=== PATIENT | female | born 1995 | race Caucasian/White ===

== ENCOUNTER → 2018-08-03 | Day surgery (SDC) | payer BC ==
[~2018-08-03] MED LIST: Acetaminophen/HYDROcodone 325-5 MG Tab PO PRN; Bupivacaine 0.5% 30 ML SDV ONE; Dexamethasone 4 MG/ML 5 ML MDV ONE; HYDROmorphone 0.5 MG/0.5 ML Syringe ONE; Haloperidol Lactate 5 MG/ML SDV IVPUSH ONE; Ketorolac 30 MG/ML SDV ONE; Lactated Ringers 1,000 ML ONE; Lidocaine 1% 4 ML ONE; Metoclopramide 10 MG/2 ML SDV ONE; Midazolam 1 MG/ML 2 ML SDV ONE; Neostigmine Methylsulfate 1 MG/ML 5 ML Syringe ONE; Ondansetron 4 MG/2 ML SDV ONE; Propofol 200 MG/20 ML SDV ONE; Rocuronium 50 MG/5 ML Vial ONE; Sodium Chloride 0.9% 10 ML Syringe FLUSH PRN; diphenhydrAMINE 50 MG/ML SDV IVPUSH PRN; fentaNYL 100 MCG/2 ML SDV IVPUSH PRN; fentaNYL 100 MCG/2 ML SDV ONE; fentaNYL 250 MCG/5 ML SDV ONE
--- NOTE | 2018-08-03 07:17 | ER ---
REASON FOR EMERGENCY ROOM VISIT: Abdominal pain. HISTORY OF PRESENT ILLNESS: The patient is a 22-year-old woman, 3, para 1, who has a past history of 2 previous miscarriages. She has been followed by Dr. Samara Denis for her OB, who is her OB physician at [facility]. She was diagnosed as being 2 weeks ago and because of her 2 miscarriages in the past, she was being followed quite closely by Dr. Denis. She was being followed with serial HCG levels, which were very sluggish to rise, which raised suspicion that she might in fact be harboring an ectopic ; however, on the most recent studies apparently, according to the patient and Dr. Denis, her HCG levels zach precipitously as one might expect, which caused them to be somewhat relieved. She has not yet had an ultrasound but was scheduled to have one this week. Yesterday, she began to experience pain in the right lower quadrant. This increased throughout the day and into the evening, last night, prompting her to come to the emergency room at approximately 0300 hours. She has not had any fever, chills, irritative voiding symptoms. She denies any nausea, vomiting, or diarrhea. PAST MEDICAL HISTORY: Two previous miscarriages as mentioned above. Childbirth x1. CURRENT MEDICATIONS: None. ALLERGIES: Sulfa and latex. REVIEW OF SYSTEMS: Pertinent positives and negatives as listed in the HPI. PHYSICAL EXAMINATION: GENERAL: She is a calm, somewhat apprehensive-looking young woman, in no acute distress. She is afebrile. VITAL SIGNS: Heart rate is 77, blood pressure 107/63, respiratory rate 16, and O2 saturations 100% on room air. HEENT: Oropharynx is normal. No conjunctivitis is noted. NECK: No adenopathy. No JVD. CHEST: Clear to auscultation with good air exchange bilaterally. CARDIAC: Regular rate without murmur. ABDOMEN: Nondistended. Bowel sounds are present. She does have definite moderate tenderness in the right lower quadrant without rebound or guarding and no percussion tenderness. PELVIC: Speculum exam reveals the cervical os to be normal in appearance and not dilated. There is no evidence of clot. Bimanual examination; she has a fair amount of guarding, it is difficult to assess her uterine size. I cannot palpate an adnexal mass on the right side, but she is definitely tender. EXTREMITIES: Normal pulses. No edema. No deformities. SKIN: No rashes. LABORATORY DATA: Her hemoglobin is 14.7. Her white blood count is not elevated. CMP was performed and this was normal. Urinalysis was normal. A beta-hCG quantitative came back 2364. She was typed and screened and her blood type is A positive. FURTHER EMERGENCY ROOM COURSE: We did get a transvaginal ultrasound because of the suspicion that she has an ectopic . Indeed, it shows a 4.3 x 2 cm mass in the right adnexal area, somewhat suspicious of the right ectopic . Her uterus shows some suggestion of a blood clot in the endometrial canal. Her left ovary is 2.2 x 1.4 cm. She does have some complex fluid lying within the cul-de-sac further suggesting the possibility of a ruptured ectopic. It should be emphasized that there was no evidence of any viable intrauterine . The patient remained dynamically stable and rested reasonably comfortably while we are awaiting the results of these studies. Once all the information was back, I contacted Dr. Samara Denis and described the findings to her. She agrees with the diagnosis and will be coming in to see the patient shortly. This was relayed to the patient. She felt reassured. All questions were answered. PAL /[id number]
--- NOTE | 2018-08-03 07:23 | PCM.HP ---
H&P History of Present Illness - General Date of Service: 08/03/18 Source of Information: Patient History Limitations: Reports: No Limitations - History of Present Illness Initial Comments - Free Text/Narative: Patient is a 22 y/o who presented to the ER today with concerns of RLQ pain. Patient seen in clinic early this due to history of miscarriage. Initial hCG's zach by about 40%, but then had a more than appropriate rise to a value of 973 on 07/29. Was set up for an early US, but unfortunately had to present today due to worsening RLQ pain. Rates moderate overall. No associate vaginal bleeding. No bowel or bladder concerns. No other issues. Has had evaluation in the ER including hCG value which is now only 2364 and an US which does not show an IUP. Right Abdominal Pain Score (Numeric/FACES): 8 - Related Data Allergies/Adverse Reactions: Allergies Allergy/AdvReac Type Severity Reaction Status Date / Time latex Allergy Rash Verified 08/03/18 03:08 Sulfa (Sulfonamide Allergy Rash Verified 08/03/18 03:08 Antibiotics) Home Medications: Home Meds . [No Known Home Meds] 08/03/18 [History] Past Medical History [employer] History: Reports: , Spontaneous : 3 Para: 1 - Past Surgical History HEENT Surgical History: Reports: Naso-Sinus Surgery, Oral Surgery (wisdom tooth extraction) Social & Family History - Family History Family Medical History: Noncontributory - Tobacco Use Smoking Status *Q: Light Tobacco Smoker Second Hand Smoke Exposure: No - Caffeine Use Caffeine Use: Reports: None - Alcohol Use Alcohol Use History: No - Recreational Drug Use Recreational Drug Use: No H&P Review of Systems - Review of Systems: Review Of Systems: See Below General: Reports: No Symptoms Pulmonary: Reports: No Symptoms Cardiovascular: Reports: No Symptoms Gastrointestinal: Reports: Abdominal Pain Genitourinary: Reports: No Symptoms Musculoskeletal: Reports: No Symptoms Neurological: Reports: No Symptoms Exam - Exam Exam: See Below - Vital Signs Vital Signs: Last Vital Signs Temp 36.6 C 08/03/18 06:24 Pulse 86 08/03/18 06:24 Resp 18 08/03/18 06:24 BP 105/67 08/03/18 06:24 Pulse Ox 98 08/03/18 06:24 Weight: 70.307 kg - Exam General: Alert, Oriented, Cooperative Lungs: Clear to Auscultation, Normal Respiratory Effort Cardiovascular: Regular Rate, Regular Rhythm GI/Abdominal Exam: Soft, Non-Tender (Female) Exam: Adnexal Tenderness, Cervix Motion Tenderness Back Exam: Normal Inspection Extremities: Normal Inspection - Patient Data Lab Results Last 24 hrs: Laboratory Results - last 24 hr 08/03/18 08/03/18 08/03/18 Range/Units 03:28 03:28 03:28 WBC 6.84 (3.98-10.04) K/mm3 RBC 4.70 (3.98-5.22) M/mm3 Hgb 14.7 (11.2-15.7) gm/L Hct 42.0 (34.1-44.9) % MCV 89.4 (79.4-94.8) fl MCH 31.3 (25.6-32.2) pg MCHC 35.0 (32.2-35.5) g/dl RDW Std Deviation 39.4 (36.4-46.3) fL Plt Count 211 (182-369) K/mm3 MPV 9.1 L (9.4-12.3) fl Neut % (Auto) 68.0 (34.0-71.1) % Lymph % (Auto) 23.2 (19.3-51.7) % [place] % (Auto) 8.0 (4.7-12.5) % Eos % (Auto) 0.6 L (0.7-5.8) Baso % (Auto) 0.1 (0.1-1.2) % Neut # (Auto) 4.64 (1.56-6.13) K/mm3 Lymph # (Auto) 1.59 (1.18-3.74) K/mm3 [place] # (Auto) 0.55 H (0.24-0.36) K/mm3 Eos # (Auto) 0.04 (0.04-0.36) K/mm3 Baso # (Auto) 0.01 (0.01-0.08) K/mm3 Sodium 137 (136-145) mEq/L Potassium 3.9 (3.5-5.1) mEq/L Chloride 103 (98-107) mEq/L Carbon Dioxide 25 (21-32) mEq/L Anion Gap 12.9 (5-15) BUN 12 (7-18) mg/dL Creatinine 0.6 (0.55-1.02) mg/dL Est Cr Clr Drug Dosing 120.63 mL/min Estimated GFR (MDRD) > 60 (>60) mL/min BUN/Creatinine Ratio 20.0 H (14-18) Glucose 106 (74-106) mg/dL Calcium 9.1 (8.5-10.1) mg/dL Total Bilirubin 0.3 (0.2-1.0) mg/dL AST 18 (15-37) U/L ALT 46 (14-59) U/L Alkaline Phosphatase 46 (46-116) U/L Total Protein 7.5 (6.4-8.2) g/dl Albumin 3.9 (3.4-5.0) g/dl Globulin 3.6 gm/dL Albumin/Globulin Ratio 1.1 (1-2) HCG, Quant mIU/mL Urine Color (Yellow) Urine Appearance (Clear) Urine pH (5.0-8.0) Ur Specific [place] (1.005-1.030) Urine Protein (Negative) Urine Glucose (UA) (Negative) Urine Ketones (Negative) Urine Occult Blood (Negative) Urine Nitrite (Negative) Urine Bilirubin (Negative) Urine Urobilinogen (0.2-1.0) Ur Leukocyte Esterase (Negative) Urine RBC (0-5) /hpf Urine WBC (0-5) /hpf Ur Epithelial Cells (0-5) /hpf Amorphous Sediment (NOT SEEN) /hpf Urine Bacteria (FEW) /hpf Urine Mucus (FEW) /hpf Blood Type A POSITIVE Gel Antibody Screen Negative 08/03/18 08/03/18 Range/Units 03:28 04:41 WBC (3.98-10.04) K/mm3 RBC (3.98-5.22) M/mm3 Hgb (11.2-15.7) gm/L Hct (34.1-44.9) % MCV (79.4-94.8) fl MCH (25.6-32.2) pg MCHC (32.2-35.5) g/dl RDW Std Deviation (36.4-46.3) fL Plt Count (182-369) K/mm3 MPV (9.4-12.3) fl Neut % (Auto) (34.0-71.1) % Lymph % (Auto) (19.3-51.7) % [place] % (Auto) (4.7-12.5) % Eos % (Auto) (0.7-5.8) Baso % (Auto) (0.1-1.2) % Neut # (Auto) (1.56-6.13) K/mm3 Lymph # (Auto) (1.18-3.74) K/mm3 [place] # (Auto) (0.24-0.36) K/mm3 Eos # (Auto) (0.04-0.36) K/mm3 Baso # (Auto) (0.01-0.08) K/mm3 Sodium (136-145) mEq/L Potassium (3.5-5.1) mEq/L Chloride (98-107) mEq/L Carbon Dioxide (21-32) mEq/L Anion Gap (5-15) BUN (7-18) mg/dL Creatinine (0.55-1.02) mg/dL Est Cr Clr Drug Dosing mL/min Estimated GFR (MDRD) (>60) mL/min BUN/Creatinine Ratio (14-18) Glucose (74-106) mg/dL Calcium (8.5-10.1) mg/dL Total Bilirubin (0.2-1.0) mg/dL AST (15-37) U/L ALT (14-59) U/L Alkaline Phosphatase (46-116) U/L Total Protein (6.4-8.2) g/dl Albumin (3.4-5.0) g/dl Globulin gm/dL Albumin/Globulin Ratio (1-2) HCG, Quant 2364.0 mIU/mL Urine Color Yellow (Yellow) Urine Appearance Slt cloudy H (Clear) Urine pH 7.0 (5.0-8.0) Ur Specific [place] 1.025 (1.005-1.030) Urine Protein Negative (Negative) Urine Glucose (UA) Negative (Negative) Urine Ketones 1+ H (Negative) Urine Occult Blood Trace-intact H (Negative) Urine Nitrite Negative (Negative) Urine Bilirubin Negative (Negative) Urine Urobilinogen 0.2 (0.2-1.0) Ur Leukocyte Esterase Negative (Negative) Urine RBC 0-5 (0-5) /hpf Urine WBC 0-5 (0-5) /hpf Ur Epithelial Cells 0-5 (0-5) /hpf Amorphous Sediment Few H (NOT SEEN) /hpf Urine Bacteria Few (FEW) /hpf Urine Mucus Few (FEW) /hpf Blood Type Gel Antibody Screen Result Diagrams: 08/03/18 03:28 08/03/18 03:28 - Problem List (1) of unknown anatomic location SNOMED Code(s): 49694977 ICD Code: O28.3 - ABNORMAL ULTRASONIC FINDING ON SCREENING OF MOTHER Status: Acute Current Visit: Yes Problem List Initiated/Reviewed/Updated: Yes Orders Last 24hrs: Active Orders 24 hr Category Date Time Status Peripheral IV Care [RC] . DIRECTED Care 08/03/18 03:28 Active OB Transvaginal [US] Stat Exams 08/03/18 03:46 Taken Transvaginal Non OB [US] Stat Exams 08/03/18 03:30 Stop Req PATIENT RETYPE [BBK] Stat Lab 08/03/18 03:28 Results TYPE AND SCREEN [BBK] Stat Lab 08/03/18 03:28 Results Sodium Chloride 0.9% [Saline Flush] Med 08/03/18 03:28 Active 10 ml FLUSH ASDIRECTED PRN Peripheral IV Insertion Adult [OM.PC] Routine Oth 08/03/18 03:28 Ordered Medication Orders Sodium Chloride (Saline Flush) 10 ml FLUSH ASDIRECTED PRN PRN Reason: Keep Vein Open Assessment/Plan Comment:: Reviewed with patient and her boyfriend findings so far. hCG has not risen appropriately since last assessment. There appears to be a possible gestational sac in the uterus, but filled with blood. Also noted is a 4.3 x 2 cm complex adnexal mass and complex fluid in the cul de sac. Possible either ectopic vs failing IUP. reviewed various options for management and at this time patient feels most comfortable with diagnostic laparoscopy and removal of ectopic if found. This would include possibility of salpingectomy. Otherwise if no findings of ectopic would move on to a D&C. She expressed understanding of this plan. Agrees to possible blood transfusion if indicated. Aware of risks of surgery including infection, damage to other structures, etc. OR crew and anesthesia alerted to plan of care.
--- NOTE | 2018-08-03 07:48 | PCM.OPNOTE ---
- General Post-Op/Procedure Note Date of Surgery/Procedure: 08/03/18 Operative Procedure(s): Laparoscopic right salpingectomy. Lysis of adhesions in left adnexa Findings: Moderate amount of blood filling the posterior cul de sac and anterior cul de sac. Dilated and edematous right fallopian tube consistent with ectopic . Normal appearance of the right ovary. Left fallopian tube with significant adhesive disease to the bowel, left ovary, and left pelvic side wall. Normal appearance of the left ovary otherwise. Pre Op Diagnosis: Pain in - US findings suspicious for ectopic Post-Op Diagnosis: Ectopic - right fallopian tube Anesthesia Technique: General ET Tube Primary Surgeon: Samara Denis Anesthesia Provider: Yanet Meyer Pathology: Right fallopian tube sent to pathology Fluid Replacement, Intraop: 2,000 Output, Urine Amount: 200 EBL in mLs: 200 Complications: None Condition: Good Free Text/Narrative:: The risks, benefits, indications, potential complications, and alternatives were explained to the patient and informed consent obtained. The patient was taken to the Operating Room where general anesthesia was induced without complication. The patient was placed in dorsal lithotomy with Frandy Stirrups. The patient was then prepped and draped in the usual sterile fashion. A speculum was placed into the vagina and a GoWar uterine manipulator was then advanced into the cervix and attached to the cervix to allow uterine manipulation throughout the procedure. The speculum were removed from the vagina. Straight catheterization performed of the bladder. Attention was then turned to the patients abdomen where a Veress needle was inserted into the abdomen while tenting the abdominal wall. Intraabdominal placement was confirmed with a drop test using a saline filled syringe and low intraabdominal pressure on low flow. A vertical infraumbilical incision was made in the umbilical fold and the 5 mm blunt trocar was inserted with the 5 mm laparoscope inserted through the trocar for direct visualization of abdominal entry through the clear view lens. Once intraabdominal placement was confirmed, the blunt obturator was removed and the laparoscope was inserted and exam of the patient's abdomen revealed the findings detailed above. The patient was placed in Trendelenburg position. Attention was turned to placement of the accessory ports. Both ports were placed approximately 10 cm lateral and 2-3 cm below the level of the first incision. A 5 mm skin incision was made in the left lower quadrant and a 5 mm trocar was inserted into the abdomen under direct visualization with care to avoid the abdominal wall vasculature. A second port was placed through a 10 mm skin incision in the right lower quadrant. A 10 mm trocar was inserted into the abdomen under direct visualization with care to avoid the abdominal wall vasculature. The right Fallopian tube was elevated with a blunt grasper. The right mesosalpinx was grasped with the Ligasure device and doubly burned and then transected. The Ligasure was then used to cauterize and transect from the fimbriated end of the fallopian tube to the uterine cornua in a sequential fashion. Once the fallopian tube was free it was placed into the anterior cul de sac. An endocatch bag was then inserted through the 10 mm port and the fallopian tube was placed inside of the bag. The bag was closed and both the port and endocatch bag were able to be removed through the right lower quadrant port site. The 10 mm trocar was then replaced. Copious irrigation and suction the performed to remove blood from the pelvis. At this point it was noted that the left fallopian tube had significant adhesive disease surrounding it. Ligasure was used to cauterize/cut and in some instances just cut and transect this adhesive disease. Eventually more dense adhesive disease was encountered between the fimbria and ovary/ovarian fossa. Given concern for potential damage to remaining fallopian tube if continued dissection occurred this remaining portion of the procedure was eventually abandoned. Fallopian tube with significant improvement in mobility, but still with some tethering by end of procedure. Inspection of the pelvis confirmed hemostasis.The right lower quadrant trochar was removed and the Jayden Mcdaniels inlet closure device was inserted into this site. A suture of 0 vicryl was placed to re-approximate the fascia. Hemostasis noted. The left lower quadrant trocar was then removed under direct visualization. The pneumoperitoneum was allowed to escape. The umbilical trocar was removed and lastly the camera was removed from the abdomen under direct visualization to confirm no herniation into the port site. 0.25% Marcaine was injected into the subcutaneous tissue of all skin incisions for local anesthesia. The skin incisions were re-approximated with 4-0 Monocryl in a running subcuticular fashion and sealed with Dermabond. The hulka uterine manipulator was then removed from the cervix. Hemostasis obtained with application of silver nitrate. The patient was awakened and taken to the Recovery Room in stable condition.
--- NOTE | 2018-08-03 08:46 | PCM.PREANE ---
Preanesthetic Assessment - Procedure Proposed Procedure: Diagnostic Laparoscopy - Anesthesia/Transfusion/Family Hx Anesthesia History: Prior Anesthesia Without Reaction Family History of Anesthesia Reaction: No - Review of Systems General: No Symptoms Pulmonary: No Symptoms Cardiovascular: No Symptoms Gastrointestinal: Abdominal Pain Neurological: No Symptoms Other: Reports: None (6 week ectopic ) - Physical Assessment NPO Status Date: 08/02/18 NPO Status Time: 18:00 O2 Sat by Pulse Oximetry: 98 Respiratory Rate: 18 Vital Signs: Last Vital Signs Temp 36.6 C 08/03/18 06:24 Pulse 86 08/03/18 06:24 Resp 18 08/03/18 06:24 BP 105/67 08/03/18 06:24 Pulse Ox 98 08/03/18 06:24 Height: 1.6 m Weight: 70.307 kg ASA Class: 2E Mental Status: Alert & Oriented x3 Airway Class: Mallampati = 1 Dentition: Reports: Normal Dentition Thyro-Mental Finger Breadths: 3 Mouth Opening Finger Breadths: 3 ROM/Head Extension: Full Lungs: Clear to Auscultation, Normal Respiratory Effort Cardiovascular: Regular Rate, Regular Rhythm - Lab Values: Laboratory Last Values WBC 6.84 K/mm3 (3.98-10.04) 08/03/18 03:28 RBC 4.70 M/mm3 (3.98-5.22) 08/03/18 03:28 Hgb 14.7 gm/L (11.2-15.7) 08/03/18 03:28 Hct 42.0 % (34.1-44.9) 08/03/18 03:28 MCV 89.4 fl (79.4-94.8) 08/03/18 03:28 MCH 31.3 pg (25.6-32.2) 08/03/18 03:28 MCHC 35.0 g/dl (32.2-35.5) 08/03/18 03:28 RDW Std Deviation 39.4 fL (36.4-46.3) 08/03/18 03:28 Plt Count 211 K/mm3 (182-369) 08/03/18 03:28 MPV 9.1 fl (9.4-12.3) L 08/03/18 03:28 Neut % (Auto) 68.0 % (34.0-71.1) 08/03/18 03:28 Lymph % (Auto) 23.2 % (19.3-51.7) 08/03/18 03:28 [place] % (Auto) 8.0 % (4.7-12.5) 08/03/18 03:28 Eos % (Auto) 0.6 (0.7-5.8) L 08/03/18 03:28 Baso % (Auto) 0.1 % (0.1-1.2) 08/03/18 03:28 Neut # (Auto) 4.64 K/mm3 (1.56-6.13) 08/03/18 03:28 Lymph # (Auto) 1.59 K/mm3 (1.18-3.74) 08/03/18 03:28 [place] # (Auto) 0.55 K/mm3 (0.24-0.36) H 08/03/18 03:28 Eos # (Auto) 0.04 K/mm3 (0.04-0.36) 08/03/18 03:28 Baso # (Auto) 0.01 K/mm3 (0.01-0.08) 08/03/18 03:28 Sodium 137 mEq/L (136-145) 08/03/18 03:28 Potassium 3.9 mEq/L (3.5-5.1) 08/03/18 03:28 Chloride 103 mEq/L (98-107) 08/03/18 03:28 Carbon Dioxide 25 mEq/L (21-32) 08/03/18 03:28 Anion Gap 12.9 (5-15) 08/03/18 03:28 BUN 12 mg/dL (7-18) 08/03/18 03:28 Creatinine 0.6 mg/dL (0.55-1.02) 08/03/18 03:28 Est Cr Clr Drug Dosing 120.63 mL/min 08/03/18 03:28 Estimated GFR (MDRD) > 60 mL/min (>60) 08/03/18 03:28 BUN/Creatinine Ratio 20.0 (14-18) H 08/03/18 03:28 Glucose 106 mg/dL (74-106) 08/03/18 03:28 Calcium 9.1 mg/dL (8.5-10.1) 08/03/18 03:28 Total Bilirubin 0.3 mg/dL (0.2-1.0) 08/03/18 03:28 AST 18 U/L (15-37) 08/03/18 03:28 ALT 46 U/L (14-59) 08/03/18 03:28 Alkaline Phosphatase 46 U/L (46-116) 08/03/18 03:28 Total Protein 7.5 g/dl (6.4-8.2) 08/03/18 03:28 Albumin 3.9 g/dl (3.4-5.0) 08/03/18 03:28 Globulin 3.6 gm/dL 08/03/18 03:28 Albumin/Globulin Ratio 1.1 (1-2) 08/03/18 03:28 HCG, Quant 2364.0 mIU/mL 08/03/18 03:28 Urine Color Yellow (Yellow) 08/03/18 04:41 Urine Appearance Slt cloudy (Clear) H 08/03/18 04:41 Urine pH 7.0 (5.0-8.0) 08/03/18 04:41 Ur Specific [place] 1.025 (1.005-1.030) 08/03/18 04:41 Urine Protein Negative (Negative) 08/03/18 04:41 Urine Glucose (UA) Negative (Negative) 08/03/18 04:41 Urine Ketones 1+ (Negative) H 08/03/18 04:41 Urine Occult Blood Trace-intact (Negative) H 08/03/18 04:41 Urine Nitrite Negative (Negative) 08/03/18 04:41 Urine Bilirubin Negative (Negative) 08/03/18 04:41 Urine Urobilinogen 0.2 (0.2-1.0) 08/03/18 04:41 Ur Leukocyte Esterase Negative (Negative) 08/03/18 04:41 Urine RBC 0-5 /hpf (0-5) 08/03/18 04:41 Urine WBC 0-5 /hpf (0-5) 08/03/18 04:41 Ur Epithelial Cells 0-5 /hpf (0-5) 08/03/18 04:41 Amorphous Sediment Few /hpf (NOT SEEN) H 08/03/18 04:41 Urine Bacteria Few /hpf (FEW) 08/03/18 04:41 Urine Mucus Few /hpf (FEW) 08/03/18 04:41 Blood Type A POSITIVE 08/03/18 03:28 Gel Antibody Screen Negative 08/03/18 03:28 - Allergies Allergies/Adverse Reactions: Allergies Allergy/AdvReac Type Severity Reaction Status Date / Time latex Allergy Rash Verified 08/03/18 03:08 Sulfa (Sulfonamide Allergy Rash Verified 08/03/18 03:08 Antibiotics) - Anesthesia Plan Pre-Op Medication Ordered: Anxiolytic - Acknowledgements Anesthesia Type Planned: General Anesthesia Pt an Appropriate Candidate for the Planned Anesthesia: Yes Alternatives and Risks of Anesthesia Discussed w Pt/Guardian: Yes Pt/Guardian Understands and Agrees with Anesthesia Plan: Yes PreAnesthesia Questionnaire TOOL PUSHER History: Reports: , Spontaneous Other OB/BYN History: , 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 [No Known Home Meds] 08/03/18 [History] - CURRENT (IN HOUSE) MEDS Current Meds: Current Medications Sodium Chloride (Saline Flush) 10 ml FLUSH ASDIRECTED PRN PRN Reason: Keep Vein Open Last Admin: 08/03/18 07:39 Dose: 10 ml Discontinued Medications Bupivacaine HCl (Marcaine 0.5%) Confirm Administered Dose 30 ml .ROUTE .STK-MED ONE Stop: 08/03/18 07:32 Dexamethasone (Dexamethasone) Confirm Administered Dose 20 mg .ROUTE .STK-MED ONE Stop: 08/03/18 07:42 Fentanyl (Sublimaze) Confirm Administered Dose 250 mcg .ROUTE .STK-MED ONE Stop: 08/03/18 07:38 Lactated Ringer's (Ringers, Lactated) Confirm Administered Dose 1,000 mls @ as directed .ROUTE .STK-MED ONE Stop: 08/03/18 07:38 Lidocaine HCl (Xylocaine-Mpf 1%) Confirm Administered Dose 4 mls @ as directed .ROUTE .STK-MED ONE Stop: 08/03/18 07:39 Metoclopramide HCl (Reglan) Confirm Administered Dose 10 mg .ROUTE .STK-MED ONE Stop: 08/03/18 07:42 Midazolam HCl (Versed 1 Mg/Ml) Confirm Administered Dose 2 mg .ROUTE .STK-Proxima Cancion ONE Stop: 08/03/18 07:38 Ondansetron HCl (Zofran) Confirm Administered Dose 4 mg .ROUTE .[facility] ONE Stop: 08/03/18 07:38 Propofol (Diprivan 20 Ml) Confirm Administered Dose 400 mg .ROUTE .[facility] [employer] ONE Stop: 08/03/18 07:38 Rocuronium [place] (Zemuron) Confirm Administered Dose 50 mg .ROUTE .AT [employer] ONE Stop: 08/03/18 07:38
--- NOTE | 2018-08-03 09:24 | US ---
First trimester obstetrical ultrasound: Multiple real-time images were obtained transvaginally. Gestational sac-like structure is seen within the endometrial cavity. Echogenic area is noted within this sac-like structure compatible with blood clot. No pole is seen. Fluid is seen within the cul-de-sac. Thick walled structure is noted within the right adnexa containing a central cystic area possibly due to ectopic . Impression: 1. No intrauterine gestational is seen. Findings within the right ovary suspicious for ectopic . Fluid within the cul-de-sac is seen raising the possibility of ruptured ectopic . 2. Blood within the endometrial cavity is noted. Diagnostic code #5 I agree with preliminary report from [facility], finalized on 08/03/18, 7:10 AM Central Time
--- NOTE | 2018-08-03 09:44 | PCM.POSTAN ---
POST ANESTHESIA ASSESSMENT - MENTAL STATUS Mental Status: Alert, Oriented - VITAL SIGNS Pulse Rate: 94 SaO2: 100 Resp Rate: 13 Blood Pressure: 96/48 (98.6f) Temperature: 37.0 C - RESPIRATORY Respiratory Status: Respiratory Rate WNL, Airway Patent, O2 Saturation Stable, Supplemental Oxygen - CARDIOVASCULAR CV Status: Pulse Rate WNL, Blood Pressure Stable - GASTROINTESTINAL GI Status: No Symptoms - PAIN Pain Score: 0 - POST OP HYDRATION Hydration Status: Adequate & Stable
[2018-08-03] MEDS: HYDROmorphone 0.5 MG/0.5 ML Syringe IVPUSH PRN ×2 (09:50→10:06)
--- NOTE | 2018-08-04 07:15 | PCM48HPAN ---
Post Anesthesia Note - EVALUATION WITHIN 48HRS OF ANESTHETIC Vital Signs in Normal Range: Yes Patient Participated in Evaluation: No (Patient discharged home yesteday.) Respiratory Function Stable: Yes Airway Patent: Yes Cardiovascular Function Stable: Yes Hydration Status Stable: Yes Pain Control Satisfactory: Yes Nausea and Vomiting Control Satisfactory: Yes Mental Status Recovered: Yes
== END | disposition home or self-care (01) ==
LOC: JD.ED 02:56 → JD.SDS 07:34
PROVIDERS: ATTEND Obstetrics & Gynecology
DX: O00.101 Right tubal pregnancy without intrauterine pregnancy (principal); Z87.891 Personal history of nicotine dependence; Z87.59 Personal history of other complications of pregnancy, childbirth and the puerperium; Z88.2 Allergy status to sulfonamides; Z91.040 Latex allergy status
CPT/HCPCS: 36415; 59151; 76817; 80053; 81001; 84702; 85025; 86850; 86900; 86901; 99285; A9270; J1100; J1170; J1885; J2250; J2405; J2704; J2765; J3010; J3490; J7120; 99284; J2001; J2710

== ENCOUNTER 2019-07-22 08:55 | Day surgery (SDC) | payer BC ==
[~2019-07-22 08:55] MED LIST changes: -Acetaminophen/HYDROcodone 325-5 MG Tab PO PRN; -Bupivacaine 0.5% 30 ML SDV ONE; -Dexamethasone 4 MG/ML 5 ML MDV ONE; -HYDROmorphone 0.5 MG/0.5 ML Syringe ONE; -Haloperidol Lactate 5 MG/ML SDV IVPUSH ONE; -Ketorolac 30 MG/ML SDV ONE; -Lactated Ringers 1,000 ML ONE; -Lidocaine 1% 4 ML ONE; +Lidocaine 1%/Sod Bicarbonate in NS 8.4% 1 ML Syringe IDERM PRN; -Metoclopramide 10 MG/2 ML SDV ONE; -Midazolam 1 MG/ML 2 ML SDV ONE; -Neostigmine Methylsulfate 1 MG/ML 5 ML Syringe ONE; -Ondansetron 4 MG/2 ML SDV ONE; -Propofol 200 MG/20 ML SDV ONE; -Rocuronium 50 MG/5 ML Vial ONE; -diphenhydrAMINE 50 MG/ML SDV IVPUSH PRN; -fentaNYL 100 MCG/2 ML SDV IVPUSH PRN; -fentaNYL 100 MCG/2 ML SDV ONE; -fentaNYL 250 MCG/5 ML SDV ONE
[2019-07-22] MEDS ORDERED: Lactated Ringers 1,000 ML ONE (09:26)
[2019-07-22] MEDS ORDERED: Ondansetron 4 MG/2 ML SDV ONE (09:26)
[2019-07-22] MEDS ORDERED: ceFAZolin 1 GM Vial ONE (09:26)
[2019-07-22] MEDS ORDERED: Midazolam 1 MG/ML 2 ML SDV ONE (09:27)
[2019-07-22] MEDS ORDERED: fentaNYL 100 MCG/2 ML SDV ONE (09:27)
[2019-07-22] MEDS ORDERED: Propofol 200 MG/20 ML SDV ONE (09:27)
[2019-07-22] MEDS ORDERED: Lidocaine 1% 4 ML ONE (09:28)
[2019-07-22] MEDS: Lactated Ringers 1,000 ML IV SCH ×2 (09:40→11:25)
[2019-07-22] MEDS ORDERED: Ketorolac 15 MG/ML SDV ONE (10:40)
[2019-07-22] MEDS ORDERED: Ibuprofen 600 MG Tab PO PRN ×2 (10:47→16:30)
[2019-07-22] MEDS ORDERED: Ondansetron 4 MG/2 ML SDV IVPUSH PRN (10:47)
--- NOTE | 2019-07-22 10:54 | PCM48HPAN ---
Post Anesthesia Note - EVALUATION WITHIN 48HRS OF ANESTHETIC Vital Signs in Normal Range: Yes Patient Participated in Evaluation: Yes Respiratory Function Stable: Yes Airway Patent: Yes Cardiovascular Function Stable: Yes Hydration Status Stable: Yes Pain Control Satisfactory: Yes Nausea and Vomiting Control Satisfactory: Yes Mental Status Recovered: Yes Vital Signs: Last Vital Signs Temp 36.3 C 07/22/19 09:15 Pulse 67 07/22/19 09:15 Resp 16 07/22/19 09:15 BP 96/63 07/22/19 09:15 Pulse Ox 97 07/22/19 09:15 1047 96/51 96% 68 12 98.2F
--- NOTE | 2019-07-22 10:57 | PCM.OPNOTE ---
- General Post-Op/Procedure Note Date of Surgery/Procedure: 07/22/19 Operative Procedure(s): Dilation and Suction Curettage Pre Op Diagnosis: Miscarriage Post-Op Diagnosis: Same Anesthesia Technique: MAC Primary Surgeon: Jozef Rod Anesthesia Provider: Yanet Meyer Pathology: Endometrial Curettings Fluid Replacement, Intraop: 800 EBL in mLs: 20 Complications: None Condition: Good Free Text/Narrative:: Surgery Duration: 5 minutes The patient was taken to the operating room and placed in a supine position operating table. She received 2 g of Ancef preoperatively for infection prophylaxis and had sequential compression stockings in place for DVT prophylaxis. After adequate MAC anesthesia patient was placed in a dorsal lithotomy position. A weighted speculum was placed in the vagina. Cervix is found to be dilated to approximately 1minimally. some blood was present in the vaginal vault but this was minimal also. Uterus was sounded to approximately 10 cm. It was found to be anterior and mid position. An 7 mm suction curette was then introduced in routine fashion the endometrial cavity was evacuated. small amount of tissue was obtained. Findings consistent with products of conceptionand in amount somewhat less than expected.. A medium size sharp curet was introduced and very careful fashion the endometrial cavity was curetted. It was be clear of any further tissue. The suction curet was then reintroduced and small and blood was removed. No further tissue was removed. This point the D&C was discontinued. The single-toothed tenaculum used to stabilize the anterior lip the cervix was removed. Blood was removed from the vagina with a stick sponge and the weighted speculum was removed from the vagina. The patient was discharged from the operating room in good condition.
[2019-07-22] MEDS: fentaNYL 100 MCG/2 ML SDV IVPUSH PRN ×2 (11:04→11:24)
--- NOTE | 2019-07-22 14:34 | PCM.PREANE ---
Preanesthetic Assessment - Anesthesia/Transfusion/Family Hx Anesthesia History: Prior Anesthesia Without Reaction Family History of Anesthesia Reaction: No - Review of Systems General: No Symptoms Pulmonary: No Symptoms, Other (Quit smoking 2 months ago. ) Gastrointestinal: No Symptoms Neurological: No Symptoms Other: Reports: Depression - Physical Assessment NPO Status Date: 07/21/19 NPO Status Time: 18:00 Vital Signs: Last Vital Signs Temp 36.7 C 07/22/19 12:20 Pulse 74 07/22/19 12:00 Resp 16 07/22/19 12:20 BP 104/62 07/22/19 12:20 Pulse Ox 98 07/22/19 12:20 Height: 1.6 m Weight: 68.946 kg ASA Class: 2 Mental Status: Alert & Oriented x3 Airway Class: Mallampati = 1 Dentition: Reports: Broken Tooth/Teeth (Chip noted to front tooth.) Thyro-Mental Finger Breadths: 3 Mouth Opening Finger Breadths: 3 ROM/Head Extension: Full Lungs: Clear to Auscultation, Normal Respiratory Effort Cardiovascular: Regular Rate, Regular Rhythm - Lab Values: Laboratory Last Values WBC 4.83 K/mm3 (3.98-10.04) 07/22/19 09:43 RBC 4.35 M/mm3 (3.98-5.22) 07/22/19 09:43 Hgb 13.4 gm/dl (11.2-15.7) D 07/22/19 09:43 Hct 39.4 % (34.1-44.9) 07/22/19 09:43 MCV 90.6 fl (79.4-94.8) 07/22/19 09:43 MCH 30.8 pg (25.6-32.2) 07/22/19 09:43 MCHC 34.0 g/dl (32.2-35.5) 07/22/19 09:43 RDW Std Deviation 41.7 fL (36.4-46.3) 07/22/19 09:43 Plt Count 195 K/mm3 (182-369) 07/22/19 09:43 MPV 8.9 fl (9.4-12.3) L 07/22/19 09:43 Neut % (Auto) 51.1 % (34.0-71.1) 07/22/19 09:43 Lymph % (Auto) 37.3 % (19.3-51.7) 07/22/19 09:43 [place] % (Auto) 10.8 % (4.7-12.5) 07/22/19 09:43 Eos % (Auto) 0.4 (0.7-5.8) L 07/22/19 09:43 Baso % (Auto) 0.4 % (0.1-1.2) 07/22/19 09:43 Neut # (Auto) 2.47 K/mm3 (1.56-6.13) 07/22/19 09:43 Lymph # (Auto) 1.80 K/mm3 (1.18-3.74) 07/22/19 09:43 [place] # (Auto) 0.52 K/mm3 (0.24-0.36) H 07/22/19 09:43 Eos # (Auto) 0.02 K/mm3 (0.04-0.36) L 07/22/19 09:43 Baso # (Auto) 0.02 K/mm3 (0.01-0.08) 07/22/19 09:43 - Allergies Allergies/Adverse Reactions: Allergies Allergy/AdvReac Type Severity Reaction Status Date / Time latex Allergy Rash Verified 08/03/18 03:08 Sulfa (Sulfonamide Allergy Rash Verified 08/03/18 03:08 Antibiotics) - Acknowledgements Anesthesia Type Planned: MAC Pt an Appropriate Candidate for the Planned Anesthesia: Yes Alternatives and Risks of Anesthesia Discussed w Pt/Guardian: Yes Pt/Guardian Understands and Agrees with Anesthesia Plan: Yes 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: , Spontaneous Other OB/BYN History: , reports chemical pregnancies - Past Surgical History HEENT Surgical History: Reports: Naso-Sinus Surgery, Oral Surgery (wisdom tooth extraction) - SUBSTANCE USE Smoking Status *Q: Former Smoker Recreational Drug Use History: No - HOME MEDS Home Medications: Home Meds FLUoxetine HCl [Fluoxetine HCl] 40 mg PO DAILY 07/22/19 [History] Ibuprofen [Motrin] 600 mg PO Q4H PRN tablet 07/22/19 [Rx] No122/Iron/Folic Acid [ Multi Tablet] 1 tab PO DAILY 07/22/19 [ History] buPROPion [Wellbutrin SR] 150 mg PO DAILY 07/22/19 [History] - CURRENT (IN HOUSE) MEDS Current Meds: Current Medications Discontinued Medications Cefazolin Sodium (Ancef) Confirm Administered Dose 2 gm .ROUTE .STK-MED ONE Stop: 07/22/19 09:27 Fentanyl (Sublimaze) Confirm Administered Dose 100 mcg .ROUTE .STK-MED ONE Stop: 07/22/19 09:28 Fentanyl (Sublimaze) 50 mcg IVPUSH Q5M PRN PRN Reason: Pain Stop: 07/22/19 18:00 Last Admin: 07/22/19 11:24 Dose: 50 mcg Lactated Ringer's (Ringers, Lactated) 1,000 mls @ 125 mls/hr IV ASDIRECTED [place] Stop: 07/22/19 23:00 Last Admin: 07/22/19 11:25 Dose: 125 mls/hr Lactated Ringer's (Ringers, Lactated) Confirm Administered Dose 1,000 mls @ as directed .ROUTE .STK-MED ONE Stop: 07/22/19 09:27 Lidocaine HCl (Xylocaine-Mpf 1%) Confirm Administered Dose 4 mls @ as directed .ROUTE .STK-MED ONE Stop: 07/22/19 09:29 Ibuprofen (Motrin) 600 mg PO Q4H PRN PRN Reason: Mild pain or fever Ketorolac Tromethamine (Toradol) Confirm Administered Dose 15 mg .ROUTE .STK- MED ONE Stop: 07/22/19 10:41 Lidocaine/Sodium Bicarbonate (Buffered Lidocaine 1% In Ns 8.4%) 0.25 ml IDERM ONETIME PRN PRN Reason: Prior to IV Start Stop: 07/22/19 18:00 Last Admin: 07/22/19 09:39 Dose: 0.25 ml Midazolam HCl (Versed 1 Mg/Ml) Confirm Administered Dose 2 mg .ROUTE .STK-MED ONE Stop: 07/22/19 09:28 Ondansetron HCl (Zofran) Confirm Administered Dose 4 mg .ROUTE .STK-MED ONE Stop: 07/22/19 09:27 Ondansetron HCl (Zofran) 4 mg IVPUSH Q4H PRN PRN Reason: Nausea Propofol (Diprivan 20 Ml) Confirm Administered Dose 400 mg .ROUTE .STK-MED ONE Stop: 07/22/19 09:28 Sodium Chloride (Saline Flush) 10 ml FLUSH ASDIRECTED PRN PRN Reason: Keep Vein Open Stop: 07/22/19 18:00
== END 2019-07-22 12:30 | disposition home or self-care (01) ==
LOC: JD.SDS 08:55
PROVIDERS: ATTEND Obstetrics & Gynecology
DX: O03.9 Complete or unspecified spontaneous abortion without complication (principal); F32.9 Major depressive disorder, single episode, unspecified; Z87.891 Personal history of nicotine dependence; Z88.8 Allergy status to other drugs, medicaments and biological substances; Z91.040 Latex allergy status; Z79.899 Other long term (current) drug therapy; Z87.59 Personal history of other complications of pregnancy, childbirth and the puerperium; Z90.79 Acquired absence of other genital organ(s)
CPT/HCPCS: 01965; 36415; 85025; J0690; J1885; J2001; J2250; J2405; J2704; J3010; J7120

== ENCOUNTER 2019-08-30 06:41 | Day surgery (SDC) | payer BC ==
[2019-08-30] MEDS: Lactated Ringers 1,000 ML IV SCH ×2 (07:00→09:51)
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
[2019-08-30] MEDS ORDERED: Bupivacaine 0.5% 30 ML SDV ONE (07:20)
[2019-08-30] MEDS ORDERED: Midazolam 1 MG/ML 2 ML SDV ONE (07:21)
[2019-08-30] MEDS ORDERED: Propofol 200 MG/20 ML SDV ONE (07:21)
[2019-08-30] MEDS ORDERED: Ondansetron 4 MG/2 ML SDV ONE (07:21)
[2019-08-30] MEDS ORDERED: Rocuronium 50 MG/5 ML Vial ONE (07:21)
[2019-08-30] MEDS ORDERED: Ketorolac 30 MG/ML SDV ONE (07:22)
[2019-08-30] MEDS ORDERED: fentaNYL 250 MCG/5 ML SDV ONE (07:22)
[2019-08-30] MEDS ORDERED: Lidocaine 1% 4 ML ONE (07:22)
[2019-08-30] MEDS ORDERED: ceFAZolin 1 GM Vial ONE (07:22)
[2019-08-30] MEDS ORDERED: Methylene Blue 50 MG/10 ML Ampule ONE ×2 (07:31→08:32)
[2019-08-30] MEDS ORDERED: Dextrose 5% in Water 100 ML ONE (07:33)
[2019-08-30] MEDS ORDERED: Lactated Ringers 1,000 ML ONE (08:08)
[2019-08-30] MEDS ORDERED: HYDROmorphone 0.5 MG/0.5 ML Syringe ONE (08:14)
[2019-08-30] MEDS ORDERED: Acetaminophen/oxyCODONE 325-5 MG Tab PO PRN (09:09)
[2019-08-30] MEDS ORDERED: Ondansetron 4 MG/2 ML SDV IVPUSH PRN (09:09)
--- NOTE | 2019-08-30 09:16 | PCM.POSTAN ---
POST ANESTHESIA ASSESSMENT - MENTAL STATUS Mental Status: Somnolent - VITAL SIGNS Vital Signs: Last Vital Signs Temp 36.2 C 08/30/19 06:45 Pulse 82 08/30/19 06:45 Resp 16 08/30/19 06:45 BP 108/62 08/30/19 06:45 Pulse Ox 98 08/30/19 06:45 - RESPIRATORY Respiratory Status: Respiratory Rate WNL, Airway Patent, O2 Saturation Stable, Supplemental Oxygen - CARDIOVASCULAR CV Status: Pulse Rate WNL, Blood Pressure Stable - GASTROINTESTINAL GI Status: No Symptoms - PAIN Pain Score: 0 - POST OP HYDRATION Hydration Status: Adequate & Stable - OBSERVATIONS Free Text/Narrative:: no anesthesia complications noted
--- NOTE | 2019-08-30 09:22 | PCM.OPNOTE ---
- General Post-Op/Procedure Note Date of Surgery/Procedure: 08/30/19 Operative Procedure(s): Laparoscopy, lysis of pelvic adhesions, biopsy of posterior uterine peritoneum, chromotubation, fimbrioplasty Findings: Patient adhesions right pelvic/abdominal sidewall. Stringy pelvic adhesions in the pelvis. Functional appearing cysts on both ovaries. The right fallopian tube was surgically absent. Appendix was flaccid and noninflamed. There was obstructed flow of dye from the left fallopian tube and the fimbriated end appeared to be somewhat phimosis but still minimally patent. Right foot tube surgically asked absent but flow was noted of methylene blue from the surgically cut and of the tube which is approximately 1 centimeter from the cornual junction. Pre Op Diagnosis: 1. Secondary infertility. 2. Normal hysterosalpingogram Post-Op Diagnosis: Same with surgically absent right fallopian tube. Phimosis of the left fallopian tube with obstructed minimal dissection from the ostia. Bilateral functional ovarian cysts. Anesthesia Technique: General ET Tube Other Anesthesia Type: Marcaine 0.5%partially 5 mL at each of 3 surgical sites. Primary Surgeon: Jozef Rod Secondary Surgeon: Dimitrios Sanderson Anesthesia Provider: Ady Russell Reason Diabetologist Was Necessary: Retraction, assistance, patient safety, quality of care. Fluid Replacement, Intraop: 1,800 Output, Urine Amount: 120 EBL in mLs: 20 Drain/Tube Comments:: Indwelling bladder catheter during surgery only Complications: None Condition: Good Free Text/Narrative:: Surgery duration: 54 minutes Procedure: The patient was taken to the operating room and placed in supine position on the operative table. She had sequential compression stockings in place for DVT prophylaxis and had been given 2 g of Ancef IV for infection prophylaxis. She was administered general endotracheal anesthesia. After administration of anesthesia the patient was placed in dorsal lithotomy position and prepped and draped in usual fashion. An indwelling bladder catheter was placed as was a uterine manipulator. It should be noted the uterus sounded to 7 cm and was noted to be posterior to mid position. Infraumbilical incision site and suprapubic site were then infiltrated with approximately 3-4 mL of Marcaine 0.5%. 5 mm incisions were made in these areas. Verres needle was placed in the infraumbilical incision site and pneumoperitoneum was established was in 3 L of CO2. The laparoscopic sleeve was then placed as was the scope. Under direct visualization the suprapubic site was developed with a 5 mm port. A 5 mm right abdominal port was also placed visualization. Pelvis was evaluated findings as above. Some stellate scarring and vesicle formation was noted in the area of the left and right uterosacral ligament and thposterior uterine peritoneal surface. Chromotubation was performed and showed a small amount of dye which came from the surgical end of the right cornual stump of the remaining right fallopian tube. Dye also flowed poorly from the 5 most end of the left fallopian tube. Using a Harmonic scalpel etienne-fimbria were created of at the end of the left fallopian tube. Approximately 5 crude-appearing fimbria were created. Dye spilled from the fallopian tube somewhat better after this was performed. posterior pelvic adhesions which are banjo string type in appearance were taken down with sharp and blunt dissection. The left ovarian cyst was ruptured during the course of the procedure and small amount of bleeding was encountered. Attempt was made to remove the ovarian cyst wall but this was unsuccessful. FloSeal was used to secure hemostasis in this area. The pelvis was irrigated and blood was aspirated out. Hemostasis was confirmed as time. At this time the pneumoperitoneum was reversed. The lower sleeve and the right abdominal port sleeve were removed under direct visualization. The 3 port site incisions were closed with single subcuticular interrupted suture of 3-0 Monocryl. The incisions were further approximated with Dermabond skin glue. The uterine manipulator and Fenton catheter removed. Patient was returned to the supine position and awakened from general endotracheal anesthesia. She left the operating room in good condition.
[2019-08-30] MEDS: fentaNYL 100 MCG/2 ML SDV IVPUSH PRN ×2 (09:26→09:52)
[2019-08-30] MEDS ORDERED: diphenhydrAMINE 50 MG/ML SDV IVPUSH STA (09:36)
[2019-08-30] MEDS ORDERED: HYDROmorphone 0.5 MG/0.5 ML Syringe IVPUSH PRN (09:40)
[2019-08-30] MEDS ORDERED: Ketorolac 30 MG/ML SDV IVPUSH SCH (13:30)
== END 2019-08-30 10:58 | disposition home or self-care (01) ==
LOC: JD.SDS 06:41
PROVIDERS: ATTEND Obstetrics & Gynecology
DX: N97.1 Female infertility of tubal origin (principal); N83.292 Other ovarian cyst, left side; N83.291 Other ovarian cyst, right side; N83.8 Other noninflammatory disorders of ovary, fallopian tube and broad ligament; N73.6 Female pelvic peritoneal adhesions (postinfective); F32.9 Major depressive disorder, single episode, unspecified; Z87.891 Personal history of nicotine dependence; Z91.040 Latex allergy status; Z88.2 Allergy status to sulfonamides; Z88.8 Allergy status to other drugs, medicaments and biological substances; Z90.79 Acquired absence of other genital organ(s); Z87.59 Personal history of other complications of pregnancy, childbirth and the puerperium
CPT/HCPCS: 36415; 58672; 81003; 84702; 85025; A9270; J0690; J1170; J1200; J1885; J2001; J2250; J2405; J2704; J3010; J3490; J7060; J7120; 00840

== ENCOUNTER 2022-06-14 17:04 | Emergency (ER) | payer BC ==
[2022-06-14] MEDS ORDERED: Sodium Chloride 0.9% 10 ML Syringe FLUSH PRN (19:09)
== END 2022-06-15 00:07 | disposition home or self-care (01) ==
LOC: JD.ED 17:04 → SUPCPDRO 17:04 → JD.ED 06-15 00:07
DX: O20.9 Hemorrhage in early pregnancy, unspecified (principal); Z88.8 Allergy status to other drugs, medicaments and biological substances; Z91.040 Latex allergy status; Z88.2 Allergy status to sulfonamides
CPT/HCPCS: 36415; 76817; 76817-26; 84144; 84702; 85025; 86900; 86901; 99284

== ENCOUNTER 2022-06-20 14:58 | Day surgery (SDC) | payer BC ==
[2022-06-20] MEDS ORDERED: Ondansetron 4 MG/2 ML SDV ONE (15:19)
[2022-06-20] MEDS ORDERED: Rocuronium 50 MG/5 ML Vial ONE (15:19)
[2022-06-20] MEDS ORDERED: Lidocaine 1% 5 ML VIAL ONE (15:20)
[2022-06-20] MEDS ORDERED: Propofol 200 MG/20 ML SDV ONE (15:20)
[2022-06-20] MEDS ORDERED: Midazolam 1 MG/ML 2 ML SDV ONE (15:20)
[2022-06-20] MEDS ORDERED: Bupivacaine 0.5% 30 ML SDV ONE (15:31)
[2022-06-20] MEDS ORDERED: HYDROmorphone 0.5 MG/0.5 ML Syringe IVPUSH PRN (15:46)
[2022-06-20] MEDS ORDERED: Ondansetron 4 MG/2 ML SDV IVPUSH PRN ×2 (15:46→16:51)
[2022-06-20] MEDS ORDERED: fentaNYL 100 MCG/2 ML SDV IVPUSH PRN (15:46)
[2022-06-20] MEDS ORDERED: fentaNYL 100 MCG/2 ML SDV ONE (15:58)
[2022-06-20] MEDS ORDERED: Dexamethasone 4 MG/ML 5 ML MDV ONE (16:06)
[2022-06-20] MEDS ORDERED: ceFAZolin 2 GM Vial ONE (16:06)
[2022-06-20] MEDS ORDERED: Ketamine 500 mg/10 ML MDV ONE (16:09)
[2022-06-20] MEDS ORDERED: Lactated Ringers 1,000 ML ONE ×2 (16:13→16:32)
[2022-06-20] MEDS ORDERED: Neostigmine Methylsulfate 10 MG/10 ML MDV ONE (16:27)
[2022-06-20] MEDS ORDERED: Ketorolac 30 MG/ML SDV ONE (16:37)
[2022-06-20] MEDS ORDERED: Acetaminophen/oxyCODONE 325-5 MG Tab PO PRN (16:51)
[2022-06-20] MEDS ORDERED: HYDROmorphone 0.5 MG/0.5 ML Syringe ONE (16:58)
[2022-06-20] MEDS ORDERED: Ibuprofen 600 MG Tab PO PRN (20:00)
== END 2022-06-20 18:15 | disposition home or self-care (01) ==
LOC: JD.ED 14:58 → JD.SDS 14:58 → EDSTATUS 15:49 → JD.SDS 16:12
PROVIDERS: ATTEND Obstetrics & Gynecology
DX: O00.102 Left tubal pregnancy without intrauterine pregnancy (principal); O99.519 Diseases of the respiratory system complicating pregnancy, unspecified trimester; J45.909 Unspecified asthma, uncomplicated; O99.340 Other mental disorders complicating pregnancy, unspecified trimester; F41.9 Anxiety disorder, unspecified; F32.A Depression, unspecified; O99.280 Endocrine, nutritional and metabolic diseases complicating pregnancy, unspecified trimester; E55.9 Vitamin D deficiency, unspecified; Z88.2 Allergy status to sulfonamides; Z91.040 Latex allergy status; Z88.8 Allergy status to other drugs, medicaments and biological substances; Z79.899 Other long term (current) drug therapy; Z98.890 Other specified postprocedural states; Z87.891 Personal history of nicotine dependence
CPT/HCPCS: 36415; 59151; 85025; A9270; J0690; J1100; J1170; J1885; J2250; J2405; J2704; J2710; J3010; J3490; J7120; 00840; 99140

== ENCOUNTER 2023-08-09 16:16 | Emergency (ER) | payer BC, OTHER ==
[2023-08-09 17:27] LABS: BASOPHILS PERCENT AUTO 0.4 % (0.0-1.0); EOSINOPHILS ABSOLUTE AUTO 0.1 K/mm3 (0.0-0.4); EOSINOPHILS PERCENT AUTO 0.7 % (0.0-6.0); HEMOGLOBIN 14.3 gm/dl (12.0-16.0); IMMATURE GRAN ABSOLUTE AUTO 0.03 K/mm3 (0.00-0.05); IMMATURE GRAN PERCENT AUTO 0.3 % (0.0-0.4); LYMPHOCYTES ABSOLUTE AUTO 2.5 K/mm3 (1.0-4.8); LYMPHOCYTES PERCENT AUTO 21.7 % (24.0-44.0); MEAN CORPUSCULAR HEMOGLOBIN 31.4 pg (28.0-32.0); MEAN CORPUSCULAR HGB CONC 34.9 g/dl (32.0-36.0); MEAN CORPUSCULAR VOLUME 89.9 fl (83.0-99.0); MEAN PLATELET VOLUME 8.7 fl (9.4-12.3); MONOCYTES ABSOLUTE AUTO 0.7 K/mm3 (0.0-0.8); MONOCYTES PERCENT AUTO 6.2 % (0.0-8.0); NEUTROPHILS PERCENT AUTO 70.7 % (41.0-71.0); PLATELET COUNT,PLT 209 K/mm3 (150-400); RED BLOOD CELL COUNT 4.56 M/mm3 (4.10-5.30)
[2023-08-09 17:43] LABS: APPEARANCE,URINE CLEAR (Clear); BILIRUBIN,URINE NEGATIVE (Negative); COLOR,URINE YELLOW (Yellow); GLUCOSE,URINE NEGATIVE (Negative); KETONES,URINE NEGATIVE (Negative); LEUKOCYTE ESTERASE,URINE NEGATIVE (Negative); NITRITE,URINE NEGATIVE (Negative); OCCULT BLOOD,URINE 1+ (Negative); PROTEIN,URINE NEGATIVE (Negative); UROBILINOGEN,URINE 0.2 (0.2-1.0)
[2023-08-09 17:51] LABS: SQUAMOUS EPITHELIAL CELLS,UR 0-5 /hpf (0-5); WBC,URINE 0-5 /hpf (0-5)
[2023-08-09 17:52] LABS: BACTERIA,URINE OCCASIONAL /hpf (FEW); MUCUS,URINE NOT SEEN /hpf (FEW)
== END 2023-08-09 18:29 | disposition home or self-care (01) ==
LOC: JD.ED 16:16
DX: O26.851 Spotting complicating pregnancy, first trimester (principal); Z3A.08 8 weeks gestation of pregnancy; Z91.040 Latex allergy status; Z88.2 Allergy status to sulfonamides; Z88.8 Allergy status to other drugs, medicaments and biological substances; Z79.899 Other long term (current) drug therapy
CPT/HCPCS: 36415; 76817; 76817-26; 81001; 84702; 85025; 86900; 86901; 99282; 99284

== ENCOUNTER 2023-09-11 22:50 | Emergency (ER) | payer OTHER ==
[2023-09-11] MEDS: Sodium Chloride 0.9% 10 ML Syringe FLUSH PRN (23:27)
[2023-09-11 23:30] LABS: BASOPHILS PERCENT AUTO 0.4 % (0.0-1.0); EOSINOPHILS ABSOLUTE AUTO 0.1 K/mm3 (0.0-0.4); EOSINOPHILS PERCENT AUTO 1.3 % (0.0-6.0); HEMATOCRIT 39.4 % (37.0-47.0); HEMOGLOBIN 13.9 gm/dl (12.0-16.0); IMMATURE GRAN ABSOLUTE AUTO 0.03 K/mm3 (0.00-0.05); IMMATURE GRAN PERCENT AUTO 0.4 % (0.0-0.4); LYMPHOCYTES ABSOLUTE AUTO 2.6 K/mm3 (1.0-4.8); LYMPHOCYTES PERCENT AUTO 33.4 % (24.0-44.0); MEAN CORPUSCULAR HEMOGLOBIN 31.7 pg (28.0-32.0); MEAN CORPUSCULAR HGB CONC 35.3 g/dl (32.0-36.0); MEAN PLATELET VOLUME 8.7 fl (9.4-12.3); MONOCYTES ABSOLUTE AUTO 0.6 K/mm3 (0.0-0.8); MONOCYTES PERCENT AUTO 7.1 % (0.0-8.0); NEUTROPHILS ABSOLUTE AUTO 4.5 K/mm3 (1.8-7.7); NEUTROPHILS PERCENT AUTO 57.4 % (41.0-71.0); PLATELET COUNT,PLT 166 K/mm3 (150-400); RED BLOOD CELL COUNT 4.38 M/mm3 (4.10-5.30); WHITE BLOOD CELL COUNT,WBC 7.87 K/mm3 (3.9-11.3)
[2023-09-11 23:53] LABS: APPEARANCE,URINE CLOUDY (Clear); BILIRUBIN,URINE NEGATIVE (Negative); COLOR,URINE YELLOW (Yellow); GLUCOSE,URINE NEGATIVE (Negative); KETONES,URINE NEGATIVE (Negative); LEUKOCYTE ESTERASE,URINE NEGATIVE (Negative); NITRITE,URINE NEGATIVE (Negative); OCCULT BLOOD,URINE 1+ (Negative); PROTEIN,URINE NEGATIVE (Negative); UROBILINOGEN,URINE 0.2 (0.2-1.0)
[2023-09-12 00:10] LABS: A/G RATIO 0.9 (1-2); ANION GAP 10.6 (5-15); BILIRUBIN TOTAL 0.2 mg/dL (0.2-1.0); BUN/CREATININE RATIO 12.9 (14-18); CALCIUM 8.5 mg/dL (8.5-10.1); CREATININE 0.7 mg/dL (0.55-1.02); EST CRCL DRUG DOSING (CG) 98.09 mL/min; MAGNESIUM 1.8 mg/dL (1.8-2.4); POTASSIUM,K 3.6 mEq/L (3.5-5.1); PROTEIN TOTAL,TP 6.4 g/dl (6.4-8.2)
[2023-09-12 00:51] LABS: AMORPHOUS SEDIMENT,URINE MANY /hpf (NOT SEEN); BACTERIA,URINE MODERATE /hpf (FEW); MUCUS,URINE NOT SEEN /hpf (FEW); RBC,URINE 0-5 /hpf (0-5); SQUAMOUS EPITHELIAL CELLS,UR 0-5 /hpf (0-5); WBC,URINE 0-5 /hpf (0-5)
== END 2023-09-12 01:00 | disposition home or self-care (01) ==
LOC: JD.ED 22:50
DX: O20.9 Hemorrhage in early pregnancy, unspecified (principal); J45.909 Unspecified asthma, uncomplicated; Z3A.12 12 weeks gestation of pregnancy; Z88.2 Allergy status to sulfonamides; Z91.040 Latex allergy status; Z88.8 Allergy status to other drugs, medicaments and biological substances; Z79.899 Other long term (current) drug therapy
CPT/HCPCS: 36415; 76801; 80053; 81001; 83735; 84702; 85025; 99284; J3490

== ENCOUNTER 2024-03-15 00:07 | Inpatient (IN) | payer OTHER ==
[2024-03-15] MEDS ORDERED: Calcium Carbonate 500 MG Tab.Chew PO PRN (14:40)
[2024-03-15] MEDS ORDERED: Nalbuphine 10 MG/1 ML Vial IVPUSH PRN (14:40)
[2024-03-15] MEDS ORDERED: Sodium Chloride 0.9% 10 ML Syringe FLUSH PRN (14:40)
[2024-03-15] MEDS ORDERED: Acetaminophen 325 MG Tab PO PRN (14:40)
[2024-03-15] MEDS ORDERED: Lactated Ringers 1,000 ML IV SCH (14:45)
[2024-03-15] MEDS: Misoprostol 25 MCG (1/4 of 100 MCG) Tab VAG ONE (14:56)
[2024-03-15 15:23] LABS: BASOPHILS PERCENT AUTO 0.2 % (0.0-1.0); EOSINOPHILS PERCENT AUTO 0.1 % (0.0-6.0); HEMATOCRIT 36.9 % (37.0-47.0); IMMATURE GRAN ABSOLUTE AUTO 0.04 K/mm3 (0.00-0.05); IMMATURE GRAN PERCENT AUTO 0.4 % (0.0-0.4); LYMPHOCYTES ABSOLUTE AUTO 2.1 K/mm3 (1.0-4.8); LYMPHOCYTES PERCENT AUTO 22.9 % (24.0-44.0); MEAN CORPUSCULAR HEMOGLOBIN 32.7 pg (28.0-32.0); MEAN CORPUSCULAR HGB CONC 35.2 g/dl (32.0-36.0); MEAN CORPUSCULAR VOLUME 92.7 fl (83.0-99.0); MONOCYTES ABSOLUTE AUTO 0.7 K/mm3 (0.0-0.8); MONOCYTES PERCENT AUTO 7.5 % (0.0-8.0); NEUTROPHILS ABSOLUTE AUTO 6.2 K/mm3 (1.8-7.7); NEUTROPHILS PERCENT AUTO 68.9 % (41.0-71.0); PLATELET COUNT,PLT 142 K/mm3 (150-400); RED BLOOD CELL COUNT 3.98 M/mm3 (4.10-5.30); WHITE BLOOD CELL COUNT,WBC 8.94 K/mm3 (3.9-11.3)
[2024-03-15] MEDS: Sodium Chloride 0.9% 10 ML Syringe FLUSH SCH (22:49)
[2024-03-16] MEDS: Misoprostol 200 MCG Tab RECTAL ONE (00:22)
[2024-03-16] MEDS: Methylergonovine 0.2 MG/1 ML Amp IM STA (00:22)
[2024-03-16] MEDS: Oxytocin/0.9 % Sodium Chloride 30 UNIT/500 ML BAG IV SCH (00:22)
[2024-03-16] MEDS: Lidocaine 1% 50 ML MDV INJECT PRN (00:27)
[2024-03-16] MEDS ORDERED: Witch Hazel Medicated Pads 40/Jar TOP PRN (01:31)
[2024-03-16] MEDS: Ibuprofen 600 MG Tab PO SCH (01:41)
[2024-03-16 01:49] LABS: BASOPHILS PERCENT AUTO 0.2 % (0.0-1.0); HEMOGLOBIN 12.6 gm/dl (12.0-16.0); IMMATURE GRAN ABSOLUTE AUTO 0.13 K/mm3 (0.00-0.05); IMMATURE GRAN PERCENT AUTO 0.7 % (0.0-0.4); LYMPHOCYTES ABSOLUTE AUTO 1.6 K/mm3 (1.0-4.8); LYMPHOCYTES PERCENT AUTO 8.5 % (24.0-44.0); MEAN CORPUSCULAR HEMOGLOBIN 32.7 pg (28.0-32.0); MEAN CORPUSCULAR VOLUME 93.5 fl (83.0-99.0); MEAN PLATELET VOLUME 10.1 fl (9.4-12.3); MONOCYTES ABSOLUTE AUTO 0.9 K/mm3 (0.0-0.8); NEUTROPHILS ABSOLUTE AUTO 15.8 K/mm3 (1.8-7.7); NEUTROPHILS PERCENT AUTO 85.6 % (41.0-71.0); PLATELET COUNT,PLT 141 K/mm3 (150-400); RED BLOOD CELL COUNT 3.85 M/mm3 (4.10-5.30); WHITE BLOOD CELL COUNT,WBC 18.45 K/mm3 (3.9-11.3)
[2024-03-16 02:15] LABS: INR 0.95; PROTHROMBIN TIME 10.1 SECONDS (9.7-12.0)
[2024-03-16] MEDS: Benzocaine/Menthol 20%-0.5% Spray 78 GM Cannister TOP PRN (05:23)
[2024-03-16 07:21] LABS: BASOPHILS PERCENT AUTO 0.1 % (0.0-1.0); EOSINOPHILS PERCENT AUTO 0.1 % (0.0-6.0); HEMATOCRIT 30.4 % (37.0-47.0); IMMATURE GRAN ABSOLUTE AUTO 0.06 K/mm3 (0.00-0.05); IMMATURE GRAN PERCENT AUTO 0.5 % (0.0-0.4); LYMPHOCYTES PERCENT AUTO 16.1 % (24.0-44.0); MEAN CORPUSCULAR HEMOGLOBIN 33.5 pg (28.0-32.0); MEAN CORPUSCULAR HGB CONC 36.2 g/dl (32.0-36.0); MEAN CORPUSCULAR VOLUME 92.7 fl (83.0-99.0); MEAN PLATELET VOLUME 10.4 fl (9.4-12.3); MONOCYTES ABSOLUTE AUTO 1.1 K/mm3 (0.0-0.8); MONOCYTES PERCENT AUTO 9.2 % (0.0-8.0); PLATELET COUNT,PLT 133 K/mm3 (150-400); RED BLOOD CELL COUNT 3.28 M/mm3 (4.10-5.30); WHITE BLOOD CELL COUNT,WBC 12.13 K/mm3 (3.9-11.3)
[2024-03-16] MEDS: Docusate Sodium 100 MG Cap PO PRN (09:06)
[2024-03-16] MEDS: Acetaminophen 325 MG Tab PO PRN (16:45)
[2024-03-17 06:38] LABS: HEMATOCRIT 31.2 % (37.0-47.0); HEMOGLOBIN 10.9 gm/dl (12.0-16.0); MEAN CORPUSCULAR HEMOGLOBIN 32.9 pg (28.0-32.0); MEAN CORPUSCULAR HGB CONC 34.9 g/dl (32.0-36.0); MEAN CORPUSCULAR VOLUME 94.3 fl (83.0-99.0); MEAN PLATELET VOLUME 10.3 fl (9.4-12.3); PLATELET COUNT,PLT 125 K/mm3 (150-400); RED BLOOD CELL COUNT 3.31 M/mm3 (4.10-5.30); WHITE BLOOD CELL COUNT,WBC 8.82 K/mm3 (3.9-11.3)
== END 2024-03-17 10:20 | disposition home or self-care (01) | DRG 806 ==
LOC: JD.OB 00:07 → OBSVTOIN 03-16 00:07 → JD.OB 03-16 00:08
PROVIDERS: ADMIT Family Medicine; ATTEND Family Medicine
PROC: 10E0XZZ Delivery of Products of Conception, External Approach (ICD-10-PCS; principal; 2024-03-16)
PROC: 0KQM0ZZ Repair Perineum Muscle, Open Approach (ICD-10-PCS; 2024-03-16)
PROC: 3E0DXGC Introduction of Other Therapeutic Substance into Mouth and Pharynx, External Approach (ICD-10-PCS; 2024-03-16)
DX: O98.32 Other infections with a predominantly sexual mode of transmission complicating childbirth (principal); O72.1 Other immediate postpartum hemorrhage; Z37.0 Single live birth; A60.00 Herpesviral infection of urogenital system, unspecified; Z3A.39 39 weeks gestation of pregnancy; O70.1 Second degree perineal laceration during delivery; O77.0 Labor and delivery complicated by meconium in amniotic fluid
CPT/HCPCS: 36415; 59025; 59409; 85025; 85027; 85384; 85610; 85730; 86592; A9270-GY; J2001; J2210; J7999